=== PATIENT | female | born 1995 | race Caucasian/White ===

== ENCOUNTER 2019-06-04 14:16 | Emergency (ER) | payer OTHER ==
[~2019-06-04] VITALS: Ht 167.6 cm; Wt 61.2 kg
[~2019-06-04 14:16] MED LIST: BACITUD TOP; IBUP-1542 PO
[2019-06-04 14:25] VITALS: BP 125/61; PULSE 89; RESP 16; Ht 167.6 cm; Wt 61.2 kg
--- NOTE | 2019-06-04 14:31 | EN ---
Date/Time of Note Date/Time of Note DATE: 06/04/19 TIME: 14:29 ER Progress Note Medical screening [id number] female with complaints of possible vaginal smell or yeast infection and dysuria. Multiple tangential complaints additionally. Patient otherwise well-appearing. ED 2 appropriate. SKINNY ASHRAF MD Jun 04, 2019 14:31
--- NOTE | 2019-06-04 14:49 | ERD ---
ER Documentation Chief Complaint Chief Complaint possible yeast infection HPI 24-year-old female with no reported past medical history who presents with complaint of vaginal itching, fishy odor, dysuria. She thinks she may have a yeast infection. She otherwise denies fevers, chills, nausea, vomiting, abdominal pain, pelvic pain. Reports she is sexually active with one partner. Prior history of gonorrhea chlamydia in 2015 Treated. reports polysubstance abuse. She otherwise without complaint. ROS All systems reviewed and are negative except as per history of present illness. Medications Home Meds Active Scripts Cephalexin* (Keflex*) 500 Mg Capsule, 500 MG PO BID for 7 Days, CAP Prov:OPALUDINELOREN PA-C 06/04/19 Ibuprofen* (Motrin*) 600 Mg Tab, 600 MG PO Q6, #30 TAB Prov:APRILLINH VASQUEZ C 04/11/18 Bacitracin* (Bacitracin Oint (UD)*) 1 Applic Oint, 1 APPLIC TOP ONCE for 7 Days, PKT APPLY TO Prov:LINH CHEN C 04/11/18 Allergies Allergies: Coded Allergies: No Known Allergy (Unverified , 04/11/18) PMhx/Soc History of Surgery: No Anesthesia Reaction: No Hx Neurological Disorder: No Hx Respiratory Disorders: No Hx Cardiac Disorders: No Hx Psychiatric Problems: No Hx Miscellaneous Medical Probl: No Hx Alcohol Use: Yes (social) Hx Substance Use: Yes Hx Tobacco Use: Yes Smoking Status: Current every day smoker FmHx Family History: No diabetes, No coronary disease, No other Physical Exam Vitals Vital Signs Date Temp Pulse Resp B/P (MAP) Pulse Ox O2 O2 Flow FiO2 Time Delivery Rate 06/04/19 97.6 89 16 125/61 98 14:25 (82) Physical Exam I have reviewed the triage vital signs. Const: Well nourished, well developed, appears stated age Eyes: PERRL, no conjunctival injection HENT: NCAT, Neck supple without meningismus CV: RRR, Warm, well-perfused extremities RESP: CTAB, Unlabored respiratory effort GI: soft, non-tender, non-distended, no masses MSK: No gross deformities appreciated Skin: Warm, dry. No rashes Neuro: grossly non focal Psych: Appropriate mood and affect. Results 24 hrs Laboratory Tests Test 06/04/19 14:53 06/04/19 14:58 Urine Color YELLOW Urine Clarity CLEAR Urine pH 6.0 Urine Specific [place] 1.019 Urine Ketones NEGATIVE mg/dL Urine Nitrite NEGATIVE mg/dL Urine Bilirubin NEGATIVE mg/dL Urine Urobilinogen NEGATIVE mg/dL Urine Leukocyte Esterase 1+ Anna/ul Urine Microscopic RBC 5 /HPF Urine Microscopic WBC 7 /HPF Urine Squamous Epithelial Cells FEW /HPF Urine Hemoglobin 3+ mg/dL Urine Glucose NEGATIVE mg/dL Urine Total Protein NEGATIVE mg/dl POC Beta HCG, Qualitative NEGATIVE Current Medications Medications Dose Sig/Min Start Time Status Last (Trade) Ordered Route PRN Stop Time Admin Dose Reason Admin Fluconazole 150 mg ONCE ONCE 06/04/19 DC 06/04/19 (Diflucan) PO 15:00 14:54 06/04/19 15:01 Procedures/MDM 24-year-old female who presents with complaint of dysuria, vaginal odor, concern for yeast infection. I have low suspicion for acute infectious process warranting further emergent care or work-up other than below. Patient treated with Diflucan for presumed candidiasis vaginal infection. Strict return precautions explained in detail. UA with evidence of urinary tract infection, will treat with 7-day course of Keflex Patient's treated with single dose of Diflucan for uncomplicated candidiasis vaginosis DISPOSITION PLAN: We discussed follow up with the patient's primary care doctor within 24 to 48 hours. Patient counseled regarding my diagnostic impression and care plan. Prior to discharge all questions answered. Pt agrees with treatment plan and understands strict return precautions. Precautionary instructions provided including instructions to return to the ER if not improving or for any worsening or changing symptoms or concerns. Disclaimer: Inadvertent spelling and grammatical errors are likely due to EHR/dictation software use and do not reflect on the overall quality of patient care. Also, please note that the electronic time recorded on this note does not necessarily reflect the actual time of the patient encounter. Departure Diagnosis: Primary Impression: Multiple complaints Condition: Stable LOREN GOLD PA-C Jun 04, 2019 14:49
[2019-06-04] MEDS ORDERED: FLUCONAZOLE 150 MG TAB PO ONE (15:00)
[2019-06-04] MEDS ORDERED: CEPH-443 PO (15:16)
== END 2019-06-04 15:33 | disposition home or self-care (01) ==
LOC: FTE 14:16
DX: N89.8 Other specified noninflammatory disorders of vagina (principal); R30.0 Dysuria; F17.210 Nicotine dependence, cigarettes, uncomplicated
CPT/HCPCS: 81001; 81025; Z7502; Z7610

== ENCOUNTER 2019-06-24 13:26 | Emergency (ER) | payer SELFPAY ==
[~2019-06-24 13:26] MED LIST changes: +CEPH-443 PO
== END 2019-06-24 14:09 | disposition left against medical advice (07) ==
LOC: E/R 13:26
DX: Z53.21 Procedure and treatment not carried out due to patient leaving prior to being seen by health care provider (principal)